=== PATIENT | male | born 1950 | race Caucasian/White ===

== ENCOUNTER → 2017-02-26 | Outpatient (CLI) | payer OTHER | LOC: FIMAGING 14:09 | PROVIDERS: ATTEND Nurse Practitioner Adult Health | DX: Z13.6 Encounter for screening for cardiovascular disorders (principal); I10 Essential (primary) hypertension ==

== ENCOUNTER → 2017-12-08 | Outpatient (CLI) | payer OTHER | LOC: BMCIMAGING 11:10 | PROVIDERS: ATTEND Internal Medicine Rheumatology | DX: Z13.820 Encounter for screening for osteoporosis (principal); M81.0 Age-related osteoporosis without current pathological fracture ==

== ENCOUNTER → 2018-03-27 | Outpatient (CLI) | payer OTHER | LOC: FIMAGING 13:03 | PROVIDERS: ATTEND Internal Medicine Endocrinology, Diabetes & Metabolism | DX: E04.1 Nontoxic single thyroid nodule (principal) ==

== ENCOUNTER → 2018-04-08 | Outpatient (CLI) | payer OTHER | LOC: FIMAGING 11:51 | PROVIDERS: ATTEND Internal Medicine Endocrinology, Diabetes & Metabolism | DX: E21.3 Hyperparathyroidism, unspecified (principal); R93.8 Abnormal findings on diagnostic imaging of other specified body structures | CPT/HCPCS: 78070; A9500; A9516 ==

== ENCOUNTER → 2018-05-11 | Outpatient (CLI) | payer OTHER ==
--- NOTE | 2018-05-13 13:01 | CPEKG ---
Test Reason : PREOP Blood Pressure : / mmHG Vent. Rate : 080 BPM Atrial Rate : 080 BPM P-R Int : 192 ms QRS Dur : 100 ms QT Int : 384 ms P-R-T Axes : 047 050 045 degrees QTc Int : 443 ms SINUS RHYTHM Confirmed by Parish Marcus ([id number] on 05/13/2018 1:01:17 PM Referred By: Confirmed By:Parish Marcus
== END ==
LOC: FPAT 14:26
PROVIDERS: ATTEND Surgery
DX: Z01.810 Encounter for preprocedural cardiovascular examination (principal)

== ENCOUNTER → 2018-11-30 | Outpatient (CLI) | payer OTHER | LOC: BMCIMAGING 12:37 | PROVIDERS: ATTEND Nurse Practitioner Adult Health | DX: I65.23 Occlusion and stenosis of bilateral carotid arteries (principal) ==